=== PATIENT | female | born 1945 | race Caucasian/White ===

== ENCOUNTER 2017-01-15 06:55 | Observation (INO) | payer MEDICARE, MEDICAID ==
[~2017-01-15] VITALS: Ht 154.9 cm; Wt 52.0 kg
[2017-01-15] MEDS ORDERED: ZOFR8TAB4 SL (07:00)
[2017-01-15 07:01] VITALS: BP 133/60; PULSE 68; RESP 20; TEMP 98.6; O2SAT 96
[2017-01-15] MEDS ORDERED: MECLIZINE HCL 25 MG TAB PO ONE (07:15)
[2017-01-15 07:40] LABS: AUTOMATED NEUTROPHIL # 10.7 TH/MM3 (1.8-7.7); BASOPHIL % 0.2 % (0.0-2.0); EOSINOPHIL % 0.2 % (0.0-4.0); HEMATOCRIT 37.1 % (35.0-46.0); LYMPH % 8.1 % (9.0-44.0); MEAN CELL VOLUME 90.4 FL (80.0-100.0); MEAN CORPUSCULAR HEMOGLOBIN 29.4 PG (27.0-34.0); MEAN CORPUSCULAR HGB CONC 32.5 % (32.0-36.0); MONO % 4.4 % (0.0-8.0); NEUT % 87.1 % (16.0-70.0); PLATELET COUNT 227 TH/MM3 (150-450); RED BLOOD COUNT 4.11 MIL/MM3 (4.00-5.30); RED CELL DISTRIBUTION WIDTH 13.4 % (11.6-17.2); WHITE BLOOD COUNT 12.3 TH/MM3 (4.0-11.0)
--- NOTE | 2017-01-15 07:40 | PD ---
HPI Chief Complaint: Dizziness Time Seen by Provider: 07:15 Travel History International Travel<30 days: No Contact w/Intl Traveler<30days: No Traveled to known affect area: No History of Present Illness HPI PATIENT WAS SEEN AT [facility] (PATIENT HAS NO LOCAL PCP SHE RECENTLY MOVED FROM [place]) FOR SAME SYMPTOMS YESTERDAY AND WAS D/C WITH ZOFRAN WHICH ACCORDING TO PATIENT IS NOT HELPING. PATIENT EXPERIENCING FAST ONSET, RO[employer] SPINNING [employer] WITH N/V. DENIES NEVAREZ/CP/ABD PAIN AT THIS TIME. PATIENT STATES THAT MOVING HER HEAD TOO QUICKILY MAKES IT WORSE, NOTHING SEEMS TO HELP IT IMPROVE. PFSH Past Medical History Headaches: Yes Migraines: Yes ?: Not : 1 Para: 1 Past Surgical History Other Surgery: Yes (NASAL/SINUS CATHERIZATION ) Social History Alcohol Use: No Tobacco Use: No Substance Use: No Allergies-Medications (Allergen,Severity, Reaction): Coded Allergies: No Known Allergies (Unverified , 01/15/17) Reported Meds & Prescriptions Reported Meds & Active Scripts Active Meclizine (Meclizine HCl) 25 Mg Tab 25 Mg PO TID PRN Ciprofloxacin (Ciprofloxacin HCl) 500 Mg Tab 500 Mg PO BID Reported Zofran Odt (Ondansetron Odt) 8 Mg Tab 8 Mg SL Q8H PRN Review of Systems Except as stated in HPI: all other systems reviewed are Neg Neurologic: Positive: Dizziness Physical Exam Narrative GENERAL: SKIN: Warm and dry. HEAD: Atraumatic. Normocephalic. EYES: Pupils equal and round. No scleral icterus. No injection or drainage. A LATERAL FATIGUABLE NYSTAGMUS NOTED DURING EOM TESTING. FOUND NO VERTICAL OR ROTARY COMPONENT. ENT: No nasal bleeding or discharge. Mucous membranes pink and moist. LEFT TM HAS AIR/FLUID LEVELS WITHOUT ERYTHEMA/BULGING AND EAC WNL NECK: Trachea midline. No JVD. CARDIOVASCULAR: Regular rate and rhythm. RESPIRATORY: No accessory muscle use. Clear to auscultation. Breath sounds equal bilaterally. GASTROINTESTINAL: Abdomen soft, non-tender, nondistended. Hepatic and splenic margins not palpable. MUSCULOSKELETAL: Extremities without clubbing, cyanosis, or edema. No obvious deformities. NEUROLOGICAL: Awake and alert. No obvious cranial nerve deficits. Motor grossly within normal limits. Five out of 5 muscle strength in the arms and legs. Normal speech. PSYCHIATRIC: Appropriate mood and affect; insight and judgment normal. Data Data Last Documented VS Vital Signs Date Time Temp Pulse Resp B/P Pulse Ox O2 Delivery O2 Flow Rate FiO2 01/15/17 10:35 68 21 127/60 100 Room Air 01/15/17 07:01 98.6 Orders Electrocardiogram (01/15/17 07:15) Complete Blood Count With Diff (01/15/17 07:15) Comprehensive Metabolic Panel (01/15/17 07:15) Troponin I (01/15/17 07:15) Prothrombin Time / Inr (Pt) (01/15/17 07:15) Act Partial Throm Time (Ptt) (01/15/17 07:15) Lipase (01/15/17 07:15) Ua Includes Microscopic (01/15/17 07:15) Thyroid Stimulating Hormone (01/15/17 07:15) Chest, Single Ap (01/15/17 07:15) Ct Brain W/O Iv Contrast(Rout) (01/15/17 07:15) Iv Access Insert/Monitor (01/15/17 07:15) Ecg Monitoring (01/15/17 07:15) Vital Signs (01/15/17 07:15) Meclizine (Antivert) (01/15/17 07:15) Ct Thorax/ Chest Wo Iv Contras (01/15/17 ) Place In Observation (01/15/17 ) Vital Signs (Adult) Q4H (01/15/17 11:48) Forming Machine Operator / Telemetry .CONTINUOUS (01/15/17 11:48) Intake + Output ALEXI.QSHIFT (01/15/17 11:48) Sodium Chlor 0.45% 1000 Ml Inj (1/2 Ns 1 (01/15/17 12:00) Sodium Chloride 0.9% Flush (Ns Flush) (01/15/17 12:00) Sodium Chloride 0.9% Flush (Ns Flush) (01/15/17 21:00) Acetaminophen (Tylenol) (01/15/17 12:00) Ondansetron Inj (Zofran Inj) (01/15/17 12:00) Scd Bilateral/Knee High ALEXI.BID (01/15/17 11:48) Kurt Bilateral/Knee High ALEXI.QSHIFT (01/15/17 11:48) Naloxone Inj (Narcan Inj) (01/15/17 12:00) Docusate Sodium-Senna (Alexandra-Colace) (01/15/17 21:00) Magnesium Hydroxide Liq (Milk Of Magnesi (01/15/17 12:00) Sennosides (Senokot) (01/15/17 12:00) Bisacodyl Supp (Dulcolax Supp) (01/15/17 12:00) Lactulose Liq (Lactulose Liq) (01/15/17 12:00) Consult Pulmonology (01/15/17 ) Echo 2d Comp With Doppler (01/15/17 ) Admit Order (Ed Use Only) (01/15/17 11:51) Labs Laboratory Tests Test 01/15/17 01/15/17 07:15 08:55 White Blood Count 12.3 TH/MM3 Red Blood Count 4.11 MIL/MM3 Hemoglobin 12.1 GM/DL Hematocrit 37.1 % Mean Corpuscular Volume 90.4 FL Mean Corpuscular Hemoglobin 29.4 PG Mean Corpuscular Hemoglobin 32.5 % Concent Red Cell Distribution Width 13.4 % Platelet Count 227 TH/MM3 Mean Platelet Volume 8.9 FL Neutrophils (%) (Auto) 87.1 % Lymphocytes (%) (Auto) 8.1 % Monocytes (%) (Auto) 4.4 % Eosinophils (%) (Auto) 0.2 % Basophils (%) (Auto) 0.2 % Neutrophils # (Auto) 10.7 TH/MM3 Lymphocytes # (Auto) 1.0 TH/MM3 Monocytes # (Auto) 0.5 TH/MM3 Eosinophils # (Auto) 0.0 TH/MM3 Basophils # (Auto) 0.0 TH/MM3 CBC Comment AUTO DIFF Differential Comment AUTO DIFF CONFIRMED Platelet Estimate NORMAL Platelet Morphology Comment NORMAL Red Cell Morphology Comment NORMAL Prothrombin Time 11.4 SEC Prothromb Time International 1.0 RATIO Ratio Activated Partial 19.8 SEC Thromboplast Time Sodium Level 142 MEQ/L Potassium Level 3.8 MEQ/L Chloride Level 108 MEQ/L Carbon Dioxide Level 23.9 MEQ/L Anion Gap 10 MEQ/L Blood Urea Nitrogen 8 MG/DL Creatinine 0.63 MG/DL Estimat Glomerular Filtration 93 ML/MIN Rate Random Glucose 103 MG/DL Calcium Level 8.8 MG/DL Total Bilirubin 0.5 MG/DL Aspartate Amino Transf 18 U/L (AST/SGOT) Alanine Aminotransferase 19 U/L (ALT/SGPT) Alkaline Phosphatase 75 U/L Troponin I LESS THAN 0.02 NG/ML Total Protein 6.5 GM/DL Albumin 3.4 GM/DL Lipase 62 U/L Thyroid Stimulating Hormone 1.930 uIU/ML 3rd Gen Urine Color YELLOW Urine Turbidity CLEAR Urine pH 7.0 Urine Specific [place] 1.010 Urine Protein NEG mg/dL Urine Glucose (UA) NEG mg/dL Urine Ketones NEG mg/dL Urine Occult Blood NEG Urine Nitrite NEG Urine Bilirubin NEG Urine Urobilinogen LESS THAN 2.0 MG/DL Urine Leukocyte Esterase NEG Urine RBC 1 /hpf Urine WBC 1 /hpf Urine Hyaline Casts 1 /lpf Urine Mucus FEW /lpf Microscopic Urinalysis Comment MDM Medical Decision Making Medical Screen Exam Complete: Yes Emergency Medical Condition: Yes Medical Record Reviewed: Yes Interpretation(s) NSR 66, NO STT CHANGES, NO STEMI PATTERN Differential Diagnosis PERIPHERAL V CENTRAL VERTIGO V ICH V BRAIN MASS V SINUS RELATED VERTIGO V DEHYDRATION V ELECTROLYTE ABNL V ATYPICAL STEMI PRESENTATION Narrative Course PATIENT EVALUATION REVEALED A NONSTEMI EKG, NO ELECTROLYTE ABNL, NO ICH OR BRAIN MASS ON CT HEAD, NO E/O DEHYDRATION BASED CLINICALLY AND ON LAB RESULTS. DIZZINESS FOUND TO BE DUE TO PERIPHERAL VERTIGO DUE TO LEFT EAR EFFUSION....HOWEVER INCIDENTALLY FOUND TO HAVE MULTIPLE NODULAR INFILTRATES ON LUNGS WHICH BRING INTO QUESTION MYCOBACTERIUM/TB VS CANCER....PATIENT STATED THAT SHE DID NOT HAVE A LOCAL DOC AND LIVED ALONE HERE THAT HER FAMILY WAS IN [place]. OFFERED TO HAVE PATIENT OBS IN HOSPITAL SO LUNG SPECIALIST COULD SEE HER, SOMEWHERE ALONG LINE PATIENT CHANGED HER MIND AND NO LONGER WANTED TO STAY IN HOSPITAL, SIGNED AMA AND DID NOT WISH TO BE OBSERVED....ADVISED THAT PRESCRIPTIONS ARE NOT REPLACEMENT FOR SEEING THE SPECIALIST OUTPATIENT AND FAILURE TO DO SO AFTER MADE FULLY AWARE OF NODULAR LUNG INFILTRATES FINDINGS CONSTITUTES NEGLIGENCE ON HER PART AND NOT OURS I ATTEMPTED TO ACCOMODATE FOR EXPEDIENT FOLLOW UP MUCH I COULD BY GETTING HER ADMITTED. PATIENT AWARE AND ACCEPTED CONSEQUENCES OF HER DECISION (FOR WHICH SHE HAD MENTAL CAPACITY TO MAKE AND WAS NOT INTOXICATED) Physician Communication Physician Communication DR PETERSON SAW PATIENT AT BEDSIDE WELL PULMONARY DR MANCUSO AT BEDSIDE, AGREED TO SEE PATIENT OUTPATIENT Diagnosis Primary Impression: Peripheral vertigo involving left ear Additional Impression: NODULAR LUNG INFILTRATES Scripts Meclizine 25 Mg Tab25 Mg PO TID PRN (VERTIGO) #21 TAB Ref 0 Prov:Joaquim Eubanks MD 01/15/17 Ciprofloxacin 500 Mg Tdr570 Mg PO BID #20 TAB Prov:Joaquim Eubanks MD 01/15/17 Disposition: 07 AGAINST MEDICAL ADVICE Condition: Stable Joaquim Eubanks MD Jan 15, 2017 07:40
[2017-01-15 07:56] LABS: APTT (PATIENT) 19.8 SEC (24.3-30.1); PROTHROMBIN TIME - PATIENT 11.4 SEC (9.8-11.6)
[2017-01-15 08:02] LABS: HEMO FLAGS AUTO DIFF
[2017-01-15 08:06] LABS: ALT (GPT) 19 U/L (10-53); ANION GAP 10 MEQ/L (5-15); AST (GOT) 18 U/L (15-37); BICARBONATE 23.9 MEQ/L (21.0-32.0); BLOOD UREA NITROGEN 8 MG/DL (7-18); CHLORIDE 108 MEQ/L (98-107); GLOMERULAR FILTRATION RATE 93 ML/MIN (>89); POTASSIUM 3.8 MEQ/L (3.5-5.1); SODIUM (NA) 142 MEQ/L (136-145)
[2017-01-15 08:16] LABS: ALKALINE PHOSPHATASE 75 U/L (45-117); TOTAL BILIRUBIN ADULT 0.5 MG/DL (0.2-1.0)
[2017-01-15 08:18] LABS: PLATELET ESTIMATE SMEAR NORMAL (NORMAL)
[2017-01-15 08:19] LABS: PLATELET MORPHOLOGY NORMAL (NORMAL); SCAN/DIFF AUTO DIFF CONFIRMED
--- NOTE | 2017-01-15 08:24 | RADRPT ---
EXAM DATE/TIME: 01/15/2017 08:00 [facility] COMPARISON: No previous studies available for comparison. INDICATIONS : Dizziness. Short of breath. MEDICAL HISTORY : Heart murmur. SURGICAL HISTORY : None. ENCOUNTER: Initial ACUITY: 1 day PAIN SCORE: 0/10 LOCATION: Bilateral chest FINDINGS: The pulmonary artery segment is slightly convex. We have no comparison exams. Lungs appear grossly cl ear. No effusion suspected. Heart size is normal. There is posttraumatic and arthritic deformity of t he left shoulder. CONCLUSION: Abnormal mediastinal contour. Recommend CT chest for definitive evaluation Poli Daley MD on January 15, 2017 at 8:21 Board Certified Radiologist. This report was verified electronically.
--- NOTE | 2017-01-15 08:26 | RADRPT ---
EXAM DATE/TIME: 01/15/2017 07:53 [facility] COMPARISON: No previous studies available for comparison. INDICATIONS : Dizziness, nausea and vomiting x 3 days. RADIATION DOSE: 30.01 CTDIvol (mGy) MEDICAL HISTORY : None SURGICAL HISTORY : None. ENCOUNTER: Initial ACUITY: 3 days PAIN SCALE: 0/10 LOCATION: cranial TECHNIQUE: Multiple contiguous axial images were obtained of the head. Using automated exposure control and adj ustment of the mA and/or kV according to patient size, radiation dose was kept as low as reasonably a chievable to obtain optimal diagnostic quality images. DICOM format image data is available electro nically for review and comparison. FINDINGS: CEREBRUM: The ventricles are normal for age. No evidence of midline shift, mass lesion, hemorrhage or acute in farction. No extra-axial fluid collections are seen. POSTERIOR FOSSA: The cerebellum and brainstem are intact. The 4th ventricle is midline. The cerebellopontine angle i s unremarkable. EXTRACRANIAL: The visualized portion of the orbits is intact. SKULL: The calvaria is intact. No evidence of skull fracture. CONCLUSION: No acute intracranial findings Poli Daley MD on January 15, 2017 at 8:23 Board Certified Radiologist. This report was verified electronically.
[2017-01-15 09:02] VITALS: BP 133/60; PULSE 63; RESP 19; O2SAT 100
[2017-01-15 09:14] LABS: BLOOD, URINE NEG (NEG); GLUCOSE,URINE NEG (NEG); HYALINE CAST, URINE 1 /lpf (RARE); KETONE, URINE NEG (NEG); MUCUS URINE FEW /lpf (OCC); NITRITE,URINE NEG (NEG); URINE COLOR YELLOW (YELLW/STRAW)
--- NOTE | 2017-01-15 10:10 | RADRPT ---
EXAM DATE/TIME: 01/15/2017 09:25 [facility] COMPARISON: No previous studies available for comparison. INDICATIONS : Mediastinal abnormality seen on chest x-ray. RADIATION DOSE: 3.34 CTDIvol (mGy) MEDICAL HISTORY : None SURGICAL HISTORY : None. ENCOUNTER: Initial ACUITY: 1 day PAIN SCALE: 0/10 LOCATION: Chest TECHNIQUE: Volumetric scanning of the chest was performed. Using automated exposure control and adjustment of t he mA and/or kV according to patient size, radiation dose was kept as low as reasonably achievable to obtain optimal diagnostic quality images. DICOM format image data is available electronically for r eview and comparison. Follow-up recommendations for incidentally detected pulmonary nodules are based at a minimum on nodul e size and patient risk factors according to Fleischner Society Guidelines. FINDINGS: Scattered nodular type infiltrates are noted bilaterally within the bilateral upper and lower lobes a s well as the right middle lobe. The findings are suggesting of atypical mycobacterium. Bronchiectasis is noted w ithin the right middle lobe and to a lesser extent within the lingula of the left upper lobe and the lower lobe s. No mediastinal, hilar or axillary lymphadenopathy is noted. A small hiatal hernia is noted. No pleural effusion is noted. Degenerative changes and scoliosis of the thoracolumbar spine are noted. CONCLUSION: 1. Scattered nodular type infiltrates as well as underlying bronchiectasis bilaterally suggestive of atypical mycobacterium. Follow up CT of the chest in six months would be helpful to confirm stabili ty. 2. Degenerative changes and scoliosis of the thoracolumbar spine. Jayden Porter MD on January 15, 2017 at 9:57 Board Certified Radiologist. This report was verified electronically.
[2017-01-15 10:35] VITALS: BP 127/60; PULSE 68; RESP 21; O2SAT 100
[2017-01-15] MEDS ORDERED: BISACODYL 10 MG SUPP RECTAL PRN (12:00)
[2017-01-15] MEDS ORDERED: MAGNESIUM HYDROXIDE SUSP 30 ML CUP PO PRN (12:00)
[2017-01-15] MEDS ORDERED: SODIUM CHLOR 0.45% 1000 ML INJ 1,000 ML IV SCH (12:00)
[2017-01-15] MEDS ORDERED: ONDANSETRON HCL 4 MG/2 ML VIAL IVP PRN (12:00)
[2017-01-15] MEDS ORDERED: SODIUM CHLORIDE 0.9% FLUSH 10 ML FLUSH IV FLUSH PRN (12:00)
[2017-01-15] MEDS ORDERED: SENNOSIDES 8.6 MG TAB PO PRN (12:00)
[2017-01-15] MEDS ORDERED: NALOXONE HCL 0.4 MG/ML AMP IV PRN (12:00)
[2017-01-15] MEDS ORDERED: LACTULOSE SYRUP 20 GM/30 ML CUP PO PRN (12:00)
[2017-01-15] MEDS ORDERED: ACETAMINOPHEN 325 MG TAB PO PRN (12:00)
--- NOTE | 2017-01-15 13:06 | ECHRPT ---
Indication: Shortness of breath CONCLUSIONS Normal left ventricular size. Wall thickness is normal. The left ventricular systolic function is normal with an estimated ejection fraction in the range of 60-65%. Trace mitral valve regurgitation. Aortic valve sclerosis is present. Mild thickening of the aortic valve leaflets. Mild aortic valve regurgitation. There is trace tricuspid valve regurgitation. The estimated pulmonary arterial pressure is 35 mmHg. BP: / HR: Rhythm: MEASUREMENTS (Male / Female) Normal Values Technical Quality:Good 2D ECHO LV Diastolic Diameter PLAX 4.1 cm 4.2 - 5.9 / 3.9 - 5.3 cm LV Systolic Diameter PLAX 3.2 cm IVS Diastolic Thickness 0.9 cm 0.6 - 1.0 / 0.6 - 0.9 cm LVPW Diastolic Thickness 0.6 cm 0.6 - 1.0 / 0.6 - 0.9 cm LV Relative Wall Thickness 0.4 LA Systolic Diameter LX 3.1 cm 3.0 - 4.0 / 2.7 - 3.8 cm M-MODE Aortic Root Diameter MM 3.1 cm AV Cusp Separation MM 2.0 cm DOPPLER AV Peak Velocity 131.0 cm/s AV Peak Gradient 6.9 mmHg LVOT Peak Velocity 99.3 cm/s LVOT Peak Gradient 3.9 mmHg Mitral E Point Velocity 69.6 cm/s Mitral A Point Velocity 86.6 cm/s Mitral E to A Ratio 0.8 LV E' Lateral Velocity 9.9 cm/s Mitral E to LV E' Lateral Ratio 7.0 LV E' Septal Velocity 7.2 cm/s Mitral E to LV E' Septal Ratio 9.6 TR Peak Velocity 296.0 cm/s TR Peak Gradient 35.0 mmHg FINDINGS LEFT VENTRICLE Normal left ventricular size. Wall thickness is normal. The left ventricular systolic function is normal with an estimated ejection fraction in the range of 60-65%. RIGHT VENTRICLE Normal right ventricular size and systolic function. LEFT ATRIUM The left atrial size is normal. RIGHT ATRIUM The right atrial size is upper limits of normal. ATRIAL SEPTUM Normal atrial septal thickness without atrial level shunting by limited color doppler interrogation. AORTA The aortic root and proximal ascending aorta are normal in size on limited imaging. MITRAL VALVE Trace mitral valve regurgitation. AORTIC VALVE Aortic valve sclerosis is present. Mild thickening of the aortic valve leaflets. Mild aortic valve regurgitation. TRICUSPID VALVE There is trace tricuspid valve regurgitation. The estimated pulmonary arterial pressure is 35 mmHg. PULMONARY VALVE The pulmonary valve is not well visualized. VESSELS The inferior vena cava is normal in size. PERICARDIUM No pericardial effusion. Yayo Perez MD, FACC (Electronically Signed) Final Date:15 January 2017 13:05
[2017-01-15] MEDS ORDERED: ALBUTEROL SULFATE 90 MCG/ACT HFA 18 GM INHALER INH PRN (13:15)
--- NOTE | 2017-01-15 13:19 | PD.AMA ---
Against Medical Advice Note Diagnosis: (1) Peripheral vertigo involving left ear (2) Pulmonary nodules Discharge Disposition: Against Medical Advice Pt Condition on Discharge: Stable Recommended Treatment Course I was not able to get a history from patient. When I saw patient she was very upset that she was being admitted to the hospital and refused further care. Patient would not give me a history. Dr. Eubanks was at the bedside when he noticed the patient was refusing admission. I tried to explain further to patient why she was being admitted to the hospital and that on the CT scan showed pulmonary lesions that needs to be evaluated by a flooring machine feeder. Patient continued to refuse care and stated that she will not stay here. I told patient that this will have to be AGAINST MEDICAL ADVICE and she was educated again on the consequences of leaving AGAINST MEDICAL ADVICE. Patient stated that she understood. I spoke to the federal district law clerk so that she can notify the nurse and I stated to her that if the patient changes her mind to notify me so that I can admit the patient. AMA Statement Patient Linda Mckenna has decided to leave the hospital against medical advice. This patient has the capacity to refuse care and understands the risks of leaving, including permanent disability and/or , and has had an opportunity to ask questions about her condition. The patient has been informed that she may return for care at any time, and follow up has been arranged/ advised. Tala Rivera MD Jan 15, 2017 13:19
[2017-01-15] MEDS ORDERED: CIPR500T2 PO (13:40)
[2017-01-15] MEDS ORDERED: MECL-62 PO (13:40)
[2017-01-15 13:48] VITALS: BP_DIAS 71; PULSE 70; RESP 18; TEMP 98.2; O2SAT 97
[2017-01-15] MEDS ORDERED: SODIUM CHLORIDE 0.9% FLUSH 10 ML FLUSH IV FLUSH SCH (21:00)
[2017-01-15] MEDS ORDERED: DOCUSATE SODIUM 50 MG/SENNA 8.6 MG TAB PO SCH (21:00)
--- NOTE | 2017-01-16 05:19 | MB ---
cc: ROSANGELA LUI MD, JOHN DATE OF CONSULTATION 01/15/2017 REFERRING PHYSICIAN Rosangela Lui MD CHIEF COMPLAINT Lung nodules. HISTORY OF PRESENT ILLNESS This is a 71-year-old white female who has recently moved from [place], has been experiencing headaches and was recently given Zofran for nausea. The patient has a previous history of migraines. She came in due to vertigo and headaches and thus a CT scan of the chest was done and the CT scan demonstrated scattered nodular infiltrates with bronchiectasis suggestive of atypical mycobacterial disease. Follow-up CT was suggested. There were some degenerative changes of the lumbar/thoracic spine. The patient has not lost any weight. Denies fevers, chills, night sweats. He has had no GI bleed but does have some nausea and vomiting. PAST SURGICAL HISTORY No surgery except for sinus surgery. HABITS The patient denies history of smoking. No alcohol use. Denies any other illicit drug use. ALLERGIES None listed. MEDICATION LIST Zofran 8 mg p.r.n. FAMILY HISTORY Noncontributory. SYSTEMS REVIEW She denies weight loss. The patient had some headaches associated with dizziness and some sinus drainage and has mild wheezing. No blackouts. She has some anxiety with depression. Denies chest or jaw pain. No calf muscle pains. No leg swelling. No urinary symptoms and no GI bleed. The other system review is negative. PHYSICAL EXAMINATION GENERAL: An averagely built elderly white female in no acute distress. Mild pallor, no clubbing of peripheral edema, no lymphadenopathy. VITAL SIGNS: Blood pressure 138/80, pulse is 67, respirations 18, temperature 97.5. HEENT: Head normocephalic. Pupils are reactive. Tongue is moist. Nasal mucosae edematous. NECK: No bruits or thyroid enlargement. CHEST: Distant breath sounds with wheezes in the upper chest with no crackles on either side. HEART: The heart sounds are irregular, S1-S2. No murmur. No S3. ABDOMEN: Soft, benign. No mass, no organomegaly or tenderness. Bowel sounds are active. EXTREMITIES: Mild varicosities. No edema. Reflexes are 1+ with no gross motor deficits. Cranial nerves are grossly intact. RECTAL EXAM: Deferred. SKIN: No lesions. IMPRESSION 1. Bilateral pulmonary infiltrates with bronchiectasis and multiple lung nodules. 2. Rule out atypical mycobacterial disease. 3. History of migraines. 4. Chronic vertigo. PLAN 1. The patient has been advised to have a follow-up CT scan of the chest in 3 months. We may need to get sputum for AFB and Gram's stain and culture and a coagulation profile will be done. 2. If she is not able to produce any sputum, a bronchoscopy could be performed to get the secretions from the lower airways to further delineate the etiology of the lesions. 3. The patient will also be given albuterol nebs q.i.d. p.r.n. 4. She will receive pain meds for her headaches. 5. Antivert 25 mg t.i.d. p.r.n. for the dizziness. 6. PFT to be done when she is clinically stable and blood gas study as well. Thank you Dr. Lui for this consultation. MD KRISTI Rodríguez/EVELYN /12:03 AM /5:07 AM
--- NOTE | 2017-01-16 09:54 | EKG ---
Date Performed: 01/15/2017 Time Performed: 07:35:37 PTAGE: 71 years EKG: Sinus rhythm POSSIBLE RIGHT VENTRICULAR CONDUCTION DELAY BORDERLINE ECG NO PREVIOUS TRACING DOCTOR: Daniel Coe Interpretating Date/Time 01/16/2017 09:53:27
== END 2017-01-15 14:23 | disposition left against medical advice (07) ==
LOC: NEPE 06:55 → NEDA 11:55
PROVIDERS: ADMIT Family Medicine; ATTEND Family Medicine
DX: H81.392 Other peripheral vertigo, left ear (principal); R91.8 Other nonspecific abnormal finding of lung field; R11.2 Nausea with vomiting, unspecified; G43.909 Migraine, unspecified, not intractable, without status migrainosus; Z53.21 Procedure and treatment not carried out due to patient leaving prior to being seen by health care provider; R06.02 Shortness of breath
CPT/HCPCS: 70450; 71010; 71250; 80053; 81001; 83690; 84443; 84484; 85025; 85610; 85730; 87015; 93005; 93306; 99285; G0378